=== PATIENT | male | born 1930 | race African-American/Black ===

== ENCOUNTER 2016-03-31 16:06 | Emergency (ER) | payer OTHER ==
[~2016-03-31 16:06] MED LIST: AMIODARONE HCL 150 MG/3 ML VIAL IV ONE; EPINEPHrine HCL (1:10,000) 1 MG/10 ML SYRINGE IV ONE; ZOCO40TA PO
--- NOTE | 2016-03-31 16:27 | PD ---
HPI Chief Complaint: Code Blue Time Seen by Provider: 16:14 Travel History International Travel<30 days: No Contact w/Intl Traveler<30days: No (unknown) Traveled to known affect area: No (unknown) History of Present Illness HPI This is an 85-year-old gentleman with a reported history of stage III colon cancer who is brought in by [facility] and fire rescue in cardiac arrest. Paramedics received a call for a male that had apparently passed out while in the bathroom. When they arrived he was agonal respirations with some response to painful stimuli. As soon as they placed him on the stretcher, he went into cardiac arrest. He was difficult to obtain I V access and they were able to give him 1 dose of epinephrine IV prior to arrival. Patient was in pulseless electrical activity when he arrived. He was given one dose of epinephrine and one dose of 300 mg of amiodarone. Family members arrived and while continuing CPR I spoke with his niece whose house he was living in. I informed her that he had no pulse and that we were performing CPR and that he had been down for at least 20/5/30 minutes in the likelihood is that we would not be able to start her his heart. I asked if he had an advanced directive. She states that he would not have wished to have compressions if his heart were to stop. I did go back and reevaluate the patient. He was in PEA with a rate in the 20s. He was pale and mottled. He was pronounced at 16:14. PFSH Past Medical History Gastrointestinal Disorders: Yes (bowel surgery) Past Surgical History Appendectomy: Yes Social History Alcohol Use: No Tobacco Use: No Substance Use: No Allergies-Medications (Allergen,Severity, Reaction): Coded Allergies: No Known Allergies (Unverified , 09/22/15) Reported Meds & Prescriptions Reported Meds & Active Scripts Active Reported Zocor 40 mg (Simvastatin) 40 Mg Tab 1 Tab PO HS Review of Systems ROS Limitations: Clinical Condition Physical Exam Narrative GENERAL: Elderly ill peeling man who is actively being ventilated through an ET tube with chest compressions in progress when he arrived. SKIN: Cool and dry. HEAD: Normocephalic/atraumatic. EYES: No scleral icterus. No injection or drainage. NECK: Trachea midline CARDIOVASCULAR: Pulseless electrical activity with a rate in the 20s. RESPIRATORY: Breath sounds equal bilaterally. Patient was being ventilated through his ET tube. GASTROINTESTINAL: Abdomen soft, nondistended. MUSCULOSKELETAL: Cyanotic and pale NEUROLOGICAL: GCS 3. MDM Medical Decision Making Medical Screen Exam Complete: Yes Emergency Medical Condition: Yes Differential Diagnosis Acute cardiac versus pulmonary embolism versus electrolyte abnormality Narrative Course This is a 85-year-old male with history of stage III colon cancer who is brought in in cardiac arrest. The patient had received one dose of epinephrine prior to arrival. Patient was given one further dose of epinephrine here and 3 mg of amiodarone. He had also select activity with a rate in the 20s. I spoke with his family members were at the bedside and they stated that he would not have wished to of had this type of procedures done on him. I did go back and reassess the patient and he continued in PEA with no cardiac activity. He was pronounced at 1614. Diagnosis Primary Impression: acute cardiopulmonary Additional Impression: History of colon cancer, stage III Disposition: 20 Condition: Carlo Marion MD Mar 31, 2016 16:27
== END 2016-03-31 20:36 | disposition expired ==
LOC: NEPE 16:06
DX: I46.9 Cardiac arrest, cause unspecified (principal); Z85.038 Personal history of other malignant neoplasm of large intestine
CPT/HCPCS: 92950; 99285; J0171; J0282